=== PATIENT | male | born 1995 | race Caucasian/White ===

== ENCOUNTER 2021-07-25 18:48 | Emergency (ER) | payer OTHER ==
[2021-07-25 19:20] VITALS: BP 171/110
[2021-07-25] MEDS ORDERED: LIDOCAINE 1%-EPI 1:100000 20 ML MDV SUBQ STA (19:27)
--- NOTE | 2021-07-25 19:56 | XRAY Report ---
PROCEDURE: Hand 3 View RT INDICATIONS: hand inj TECHNIQUE: 3 views of the hand(s) acquired. COMPARISON: None FINDINGS: Bones: Postsurgical changes compatible prior ORIF of scaphoid fracture. Orthopedic hardware is in ex pected position. No acute fractures or dislocations. No suspicious bony lesions. Soft tissues: No suspicious soft tissue calcifications. IMPRESSION: No acute fracture. No acute osseous lesion. If symptoms and/or clinical concern for pathology persist s, further assessment with repeat plain film radiographs (7-10 days) or advanced imaging (CT, MR, bon e scan) should be considered. Reviewed by: Diann Herron MD, PhD on 07/25/2021 7:54 PM PDT Approved by: Diann Herron MD, PhD on 07/25/2021 7:54 PM PDT Station ID: [id number]
--- NOTE | 2021-07-25 20:03 | ED Physician Documentation ---
PD HPI UPPER EXT INJURY - Stated complaint Stated Complaint: RT HAND VS DRILL - Chief complaint Chief Complaint: Laceration - History obtained from History obtained from: Patient (Left-handed gentleman who is up-to-date on tetanus accidentally drilled into his right hand with a drill while working at home just prior to arrival.) Review of Systems Constitutional: reports: Reviewed and negative Eyes: reports: Reviewed and negative Ears: reports: Reviewed and negative Respiratory: reports: Reviewed and negative PD PAST MEDICAL HISTORY - Present Medications Home Medications: Ambulatory Orders Medication Instructions Recorded Confirmed No Known Home Medications 07/25/21 07/25/21 - Allergies Allergies/Adverse Reactions: Allergies Allergy/AdvReac Type Severity Reaction Status Date / Time No Known Drug Allergies Allergy Verified 07/25/21 19:15 PD ED PE NORMAL - Vitals Vital signs reviewed: Yes - General General: Alert and oriented X 3, No acute distress - HEENT HEENT: PERRL, EOMI - Extremities Extremities: Other (There is a few lacerations in the first dorsal webspace of the right hand, the longest measuring 2 cm, one measuring 1 cm, and 1 is just a puncture wound. There is no distal neurovascular compromise.) - Neuro Neuro: Alert and oriented X 3, Normal speech Results - Vitals Vitals: Vital Signs - 24 hr 07/25/21 07/25/21 19:12 19:45 Temperature 36.1 C L Heart Rate 89 Respiratory 18 12 Rate Blood Pressure 171/110 H O2 Saturation 95 Oxygen O2 Source Room air - Rads (name of study) Three-view x-ray of the right hand without evident fracture Radiology: EMP read contemporaneously Procedures - Laceration (location) R hand Length in cm: 3 Wound type: Other (2 lacerations, one measuring 2 cm and 1 measuring 1 cm) Neurovascular status: Sensory intact, Motor intact, Vascular intact Anesthesia: Lidocaine 1% with epi Wound preparation: Irrigated copiously NS Skin layer closure: Nylon, Interrupted, Size #-0 - enter number (4-0), Sutures - enter # (5 in the longer laceration, 2 in the shorter laceration) Other: Patient tolerated well, No complications, Neurovascular intact, Tetanus UTD Departure - Departure Disposition: 01 Home, Self Care Clinical Impression: Laceration of right hand Condition: Good Record reviewed to determine appropriate education?: Yes Instructions: ED Laceration Hand Comments: Come back for any signs of infection which would include: Redness, swelling, drainage, increased pain, or fevers. You can wash it soap and water. Keep it covered and moist with bacitracin ointment which is available over the counter; avoid neosporin. Follow-up with your physician in 14 Days for suture removal. Your blood pressure was elevated today on check into the emergency department. This does not mean that you have hypertension, it is a common phenomenon to come to the emergency department and have elevated blood pressure. I recommend that you see your primary care physician within the week to have it rechecked when you are feeling better. Discharge Date/Time: 07/25/21 20:15
== END 2021-07-25 20:15 | disposition home or self-care (01) ==
LOC: ED 18:48
DX: S61.411A Laceration without foreign body of right hand, initial encounter (principal); W29.8XXA Contact with other powered hand tools and household machinery, initial encounter; Y92.009 Unspecified place in unspecified non-institutional (private) residence as the place of occurrence of the external cause
CPT/HCPCS: 12002; 99283